=== PATIENT | male | born 1985 | race Caucasian/White ===

== ENCOUNTER 2016-10-15 15:27 | Inpatient (IN) | payer OTHER ==
[2016-10-15 16:07] VITALS: BMI 18.1
--- NOTE | 2016-10-15 19:41 | HP ---
COWS - Scale Resting Pulse: 0= NC 80 or Below Sweatin= Chills/Flushing Restless Observation: 3= Extraneous Movement Pupil Size: 0= Normal to Room Light Bone or Joint Aches: 2= Severe Diffuse Aches Runny Nose/ Eye Tearin= Runny Nose/Eyes GI Upset > 30mins: 3= Vomiting/Diarrhea Tremor Observation: 2= Slight Tremor Visible Yawning Observation: 0= None Anxiety or Irritability: 2=Irritable/Anxious Goose Flesh Skin: 3=Piloerection COWS Score: 18 Admission ROS S - [facility] Chief Complaint: withdrawal sx Allergies/Adverse Reactions: Allergies Allergy/AdvReac Type Severity Reaction Status Date / Time No Known Allergies Allergy Verified 10/15/16 19:13 History of Present Illness: 31 years old male with long history of opiate cocaine marijuana nicotine dependence, denies medical issue has schizophrenia longest sobriety 1 year is admitted to detox Exam Limitations: No Limitations - Ebola screening Have you traveled outside of the country in the last 21 days: No (N) Have you had contact with anyone from an Ebola affected area: No Have you been sick,other than usual withdrawal symptoms: No Do you have a fever: No - Review of Systems Constitutional: Chills, Loss of Appetite, Changes in sleep, Unexplained wgt Loss EENT: reports: Dental Problems (upper teeth missing) Respiratory: reports: No Symptoms reported Cardiac: reports: No Symptoms Reported GI: reports: Diarrhea, Nausea, Poor Appetite, Poor Fluid Intake, Vomiting, Abdominal cramping : reports: No Symptoms Reported Musculoskeletal: reports: Back Pain, Joint Pain, Muscle Pain, Neck Pain Integumentary: reports: Change in Color (right fore arm iv opiate) Neuro: reports: Tremors Endocrine: reports: No Symptoms Reported Hematology: reports: No Symptoms Reported Psychiatric: reports: Judgement Intact, Anxious, Depressed Other Systems: Reviewed and Negative Patient History - Patient Medical History Hx Anemia: Yes Hx Asthma: No Hx Chronic Obstructive Pulmonary Disease (COPD): No Hx Cancer: No Hx Cardiac Disorders: No Hx Congestive Heart Failure: No Hx Hypertension: No Hx Hypercholesterolemia: No Hx Pacemaker: No HX Cerebrovascular Accident: No Hx Seizures: No Hx Dementia: No Hx Diabetes: No Hx Gastrointestinal Disorders: No Hx Liver Disease: No Hx Genitourinary Disorders: No Hx Sexually Transmitted Disorders: No Hx Renal Disease (ESRD): No Hx Thyroid Disease: No Hx Human Immunodeficiency Virus (HIV): No Hx Hepatitis C: No Hx Depression: No Hx Suicide Attempt: Yes (hang self 2013) Hx Bipolar Disorder: No Hx Schizophrenia: Yes - Patient Surgical History Past Surgical History: Yes Hx Neurologic Surgery: No Hx Cataract Extraction: No Hx Cardiac Surgery: No Hx Lung Surgery: No Hx Breast Surgery: No Hx Breast Biopsy: No Hx Abdominal Surgery: No Hx Appendectomy: No Hx Cholecystectomy: No Hx Genitourinary Surgery: No Hx Section: Yes (RT WRIST 2013) Hx Orthopedic Surgery: No Other Surgical History: RT KNEE 10 years old Anesthesia Reaction: No - PPD History Previous Implant?: Yes Documented Results: Negative w/o proof Implanted On Prior [facility] Admission?: No PPD to be Administered?: Yes - Smoking Cessation Smoking history: Current every day smoker Have you smoked in the past 12 months: Yes Aproximately how many cigarettes per day: 20 Cigars Per Day: 0 Hx Chewing Tobacco Use: No Initiated information on smoking cessation: Yes 'Breaking Loose' booklet given: 10/15/16 - Substance & Tx. History Hx Alcohol Use: No Hx Substance Use: Yes Substance Use Type: Cocaine, Marijuana, Opiates Hx Substance Use Treatment: Yes - Substances Abused Heroin Route: Injection Frequency: Daily Amount used: 5 bags Age of first use: 28 Date of Last Use: 10/14/16 Cocaine Route: Smoking Frequency: Daily Amount used: 10 bags Age of first use: 17 Date of Last Use: 10/15/16 Marijuana/Hashish Route: Smoking Frequency: Daily Amount used: 2 blunts Age of first use: 12 Date of Last Use: 10/15/16 Family Disease History - Family Disease History Family Disease History: Other: Father (no contact), Mother (no contact) Admission Physical Exam BHS - Vital Signs Vital Signs: Vital Signs - 24 hr 10/15/16 16:04 Temperature 96 F L Pulse Rate 80 Respiratory 20 Rate Blood Pressure 116/58 - Physical General Appearance: Yes: Appropriately Dressed, Mild Distress, Thin, Tremorous, Irritable, Sweating, Anxious HEENTM: Yes: Hearing grossly Normal, Normal ENT Inspection, Normocephalic, Normal Voice Respiratory: Yes: Chest Non-Tender, Lungs Clear, Normal Breath Sounds, No Respiratory Distress, No Accessory Muscle Use Neck: Yes: Supple, Trachea in good position Breast: Yes: Breasts Symetrical Cardiology: Yes: Regular Rhythm, Regular Rate, S1, S2 Abdominal: Yes: Non Tender, Soft Genitourinary: Yes: Within Normal Limits Back: Yes: Normal Inspection Musculoskeletal: Yes: full range of Motion, Gait Steady, Joint swelling (feet) Extremities: Yes: Normal Range of Motion, Non-Tender, Tremors Neurological: Yes: Alert, Motor Strength 5/5, Normal Response, Depressed Affect Integumentary: Yes: Track Bee Lymphatic: Yes: Within Normal Limits - Diagnostic (1) Opioid dependence with withdrawal Current Visit: Yes Status: Acute (2) Nicotine dependence Current Visit: Yes Status: Acute Qualifiers: Nicotine product type: cigarettes Substance use status: in withdrawal Qualified Code(s): F17.213 - Nicotine dependence, cigarettes, with withdrawal (3) Weight loss Current Visit: Yes Status: Acute (4) Schizophrenia Current Visit: Yes Status: Suspected Qualifiers: Schizophrenia type: paranoid schizophrenia Qualified Code(s): F20.0 - Paranoid schizophrenia Comment: resperidal Cleared for Admission [facility] - Detox or Rehab [facility] Level of Care: Medically Managed Detox Regimen/Protocol: Methadone [facility] Breath Alcohol Content Breath Alcohol Content: 0 Urine Drug Screen - Results Drug Screen Negative: No Urine Drug Screen Results: THC-Marijuana, ISABEL-Cocaine, OPI-Opiates
[2016-10-15] MEDS ORDERED: MAG HYDROX/AL HYDROX/SIMETH 30 ML UNIT-DOSE CUP PO PRN (19:46)
[2016-10-15] MEDS ORDERED: guaiFENesin/D-METHORPHAN HB 10 ML UNIT-DOSE CUPS PO PRN (19:46)
[2016-10-15] MEDS ORDERED: MAGNESIUM HYDROX 2400MG/30ML ORAL SUSPENSION 30 ML CUP PO PRN (19:46)
[2016-10-15] MEDS ORDERED: MAGNESIUM CITRATE 300 ML BOTTLE PO PRN (19:46)
[2016-10-15] MEDS ORDERED: LOPERAMIDE HCL 2 MG CAPSULE PO PRN (19:46)
[2016-10-15] MEDS ORDERED: METHADONE HCL 10 MG TABLET (FOR DETOX USE ONLY) PO ONE ×2 (19:46→23:00)
[2016-10-15] MEDS ORDERED: NICOTINE POLACRILEX 2 MG GUM BC PRN (19:46)
[2016-10-15] MEDS ORDERED: MENTHOL/PHENOL 1 EACH UD MM PRN (19:46)
[2016-10-15] MEDS ORDERED: P-EPHED 60MG/TRIPROLIDI 2.5MG TABLET PO PRN (19:46)
[2016-10-15] MEDS ORDERED: ACETAMINOPHEN 325 MG TABLET (FP) PO PRN (19:46)
[2016-10-15] MEDS ORDERED: IBUPROFEN 400 MG TABLET (FP) PO PRN (19:46)
[2016-10-15] MEDS ORDERED: ONDANSETRON *ODT* 4 MG TABLET SL PRN (19:50)
[2016-10-15] MEDS: diazePAM 5 MG TABLET PO PRN (20:54)
[2016-10-15] MEDS: THIAMINE HCL 100 MG TABLET (FP) PO SCH (22:46)
[2016-10-15] MEDS: diphenhydrAMINE HCL 50 MG CAPSULE PO PRN (22:47)
[2016-10-15] MEDS ORDERED: BACITRACIN 0.9 GM PACKET TP ONE (23:19)
[2016-10-16] MEDS: CEPHALEXIN MONOHYDRATE 500 MG CAPSULE (UD) PO SCH ×5 (00:27→23:07)
[2016-10-16] MEDS: diazePAM 5 MG TABLET PO PRN ×4 (06:01→22:24)
[2016-10-16 09:58] LABS: MCH 32.3 pg (25.7-33.7); MEAN CELL VOLUME 97.9 fl (80-96); MEAN PLT VOLUME 7.6 fl (7.5-11.1); PLATELET COUNT 200 K/MM3 (134-434); RDW 15.1 % (11.9-15.9); WHITE BLOOD COUNT 5.8 K/mm3 (4.0-10.0)
[2016-10-16] MEDS ORDERED: METHADONE HCL 10 MG TABLET (FOR DETOX USE ONLY) PO ONE (10:00)
[2016-10-16 10:35] LABS: ALBUMIN 3.2 g/dl (3.4-5.0); ALK PHOS 70 U/L (45-117); ANION GAP 10 (8-16); BILIRUBIN,TOTAL 0.2 mg/dL (0.2-1.0); CALCIUM 8.6 mg/dL (8.5-10.1); CO2 28 mmol/L (21-32); CREATININE 0.9 mg/dL (0.7-1.3); GLUCOSE,RANDOM 75 mg/dL (74-106); SGOT/AST 29 U/L (15-37); SGPT/ALT 29 U/L (12-78)
--- NOTE | 2016-10-16 10:42 | CONSULT ---
[facility] Psychiatric Consult - Data Date of interview: 10/16/16 Admission source: [facility] Identifying data: First admission to [facility] for this 31 y/o male seeking detox treatment on for opioid,cocaine,marijuana and nicotine dependence.Mr Goldsmith is approached at bedside for psychiatric evaluation.He refuses to provide personal information." I cannot answer questions now.Please leave." Patient declines psychiatric interview. Substance Abuse History: No details offered. Medical History: No information from patient. Psychiatric History: Noted report of schizophrenia.No details. Physical/Sexual Abuse/Trauma History: No information. Additional Comment: Urine Drug Screen Results: THC-Marijuana, ISABEL-Cocaine, OPI- Opiates.Noted. Nursing staff is made aware of patient's refusal of psychiatric evaluation.No evidence of distress.Mr Gonzalez was observed earlier,by this field underwriter,moving around in his wheelchair.
[2016-10-16] MEDS: PRENATAL VITAMINS W/ FOLIC ACID TABLET (FP) PO SCH (10:58)
[2016-10-16] MEDS: NICOTINE 21 MG/24 HOURS TOPICAL PATCH TD SCH (10:58)
[2016-10-16 11:05] LABS: HIV 1 & 2 AB NEGATIVE; HIV 1 AGp24 NEGATIVE
--- NOTE | 2016-10-16 12:12 | PN ---
BHS COWS - Scale Resting Pulse: 0= CT 80 or Below Sweatin= Chills/Flushing Restless Observation: 3= Extraneous Movement Pupil Size: 2= Moderately Dilated Bone or Joint Aches: 4=Acute Joint/Muscle Pain Runny Nose/ Eye Tearin= Nasal Congestion GI Upset > 30mins: 1= Stomach Cramp Tremor Observation of Outstretched Hands: 2= Slight Tremor Visible Yawning Observation: 2= >3x During Session Anxiety or Irritability: 1=Feels Anxious/Irritable Goose Flesh Skin: 0=Smooth Skin COWS Score: 17 BHS Progress Note (SOAP) Subjective: ANXIETY,SWEATS,FEET PAIN DUE TO LEG WOUND. PT STATES WALKED TOO MUCH AND SUSTAINED MULTIPLE BLISTERS ON BOTH FEET.DRESSINGS INTACT. Objective: 10/16/16 12:11 Vital Signs Temperature 97 F L 10/16/16 11:53 Pulse Rate 72 10/16/16 11:53 Respiratory Rate 18 10/16/16 11:53 Blood Pressure 105/60 10/16/16 11:53 O2 Sat by Pulse Oximetry (%) Laboratory Last Values WBC 5.8 K/mm3 (4.0-10.0) 10/16/16 07:00 RBC 4.20 M/mm3 (4.00-5.60) 10/16/16 07:00 Hgb 13.6 GM/dL (11.7-16.9) 10/16/16 07:00 Hct 41.1 % (35.4-49) 10/16/16 07:00 MCV 97.9 fl (80-96) H 10/16/16 07:00 MCHC 33.0 g/dl (32.0-35.9) 10/16/16 07:00 RDW 15.1 % (11.9-15.9) 10/16/16 07:00 Plt Count 200 K/MM3 (134-434) 10/16/16 07:00 MPV 7.6 fl (7.5-11.1) 10/16/16 07:00 Sodium 143 mmol/L (136-145) 10/16/16 07:00 Potassium 4.1 mmol/L (3.5-5.1) 10/16/16 07:00 Chloride 105 mmol/L (98-107) 10/16/16 07:00 Carbon Dioxide 28 mmol/L (21-32) 10/16/16 07:00 Anion Gap 10 (8-16) 10/16/16 07:00 BUN 17 mg/dL (7-18) 10/16/16 07:00 Creatinine 0.9 mg/dL (0.7-1.3) 10/16/16 07:00 Creat Clearance w eGFR > 60 (>60) 10/16/16 07:00 Random Glucose 75 mg/dL (74-106) 10/16/16 07:00 Calcium 8.6 mg/dL (8.5-10.1) 10/16/16 07:00 Total Bilirubin 0.2 mg/dL (0.2-1.0) 10/16/16 07:00 AST 29 U/L (15-37) 10/16/16 07:00 ALT 29 U/L (12-78) 10/16/16 07:00 Alkaline Phosphatase 70 U/L (45-117) 10/16/16 07:00 Total Protein 6.0 g/dl (6.4-8.2) L 10/16/16 07:00 Albumin 3.2 g/dl (3.4-5.0) L 10/16/16 07:00 HIV 1&2 Antibody Screen Negative 10/16/16 07:00 HIV P24 Antigen Negative 10/16/16 07:00 Assessment: 10/16/16 12:11 WITHDRAWAL SX Plan: CONTINUE DETOX
[2016-10-16] MEDS ORDERED: BACITRACIN 0.9 GM PACKET TP ONE (19:56)
--- NOTE | 2016-10-16 19:59 | PN ---
BHS Progress Note (SOAP) Subjective: skin abrasion of both feet Objective: 10/16/16 19:57 healing improvement less painful Assessment: 10/16/16 19:58 feet skin abrasion Plan: patient is doing well with oral keflex and bacitracin dressing change continue detox
[2016-10-16] MEDS: THIAMINE HCL 100 MG TABLET (FP) PO SCH (22:24)
[2016-10-16] MEDS: diphenhydrAMINE HCL 50 MG CAPSULE PO PRN (22:26)
--- NOTE | 2016-10-16 23:35 | EKG ---
Test Reason : Blood Pressure : / mmHG Vent. Rate : 083 BPM Atrial Rate : 083 BPM P-R Int : 136 ms QRS Dur : 082 ms QT Int : 368 ms P-R-T Axes : 062 081 057 degrees QTc Int : 432 ms NORMAL SINUS RHYTHM NORMAL ECG NO PREVIOUS ECGS AVAILABLE Confirmed by KATHY BLACKWOOD MD ([id number]) on 10/16/2016 11:35:07 PM Referred By: Rafita Sapp Confirmed By:KATHY BLACKWOOD MD
[2016-10-17] MEDS: diazePAM 5 MG TABLET PO PRN ×4 (02:41→22:13)
[2016-10-17] MEDS: CEPHALEXIN MONOHYDRATE 500 MG CAPSULE (UD) PO SCH ×4 (05:54→23:15)
[2016-10-17] MEDS ORDERED: METHADONE HCL 5 MG TABLET (FOR DETOX USE ONLY) PO ONE (10:00)
[2016-10-17] MEDS: NICOTINE 21 MG/24 HOURS TOPICAL PATCH TD SCH (10:18)
[2016-10-17] MEDS: PRENATAL VITAMINS W/ FOLIC ACID TABLET (FP) PO SCH (10:18)
--- NOTE | 2016-10-17 10:58 | PN ---
BHS COWS - Scale Resting Pulse: 1= ID [id number] Sweatin= Chills/Flushing Restless Observation: 3= Extraneous Movement Pupil Size: 2= Moderately Dilated Bone or Joint Aches: 4=Acute Joint/Muscle Pain Runny Nose/ Eye Tearin= Nasal Congestion GI Upset > 30mins: 1= Stomach Cramp Tremor Observation of Outstretched Hands: 2= Slight Tremor Visible Yawning Observation: 1= 1-2x During Session Anxiety or Irritability: 2=Irritable/Anxious Goose Flesh Skin: 0=Smooth Skin COWS Score: 18 BHS Progress Note (SOAP) Subjective: ANXIETY,SWEATS,FATIGUE,FEET PAIN DECREASED AND BANDAGE DRESSING REMOVED. Objective: 10/17/16 10:55 Vital Signs Temperature 97 F L 10/17/16 09:28 Pulse Rate 82 10/17/16 09:28 Respiratory Rate 19 10/17/16 09:28 Blood Pressure 120/74 10/17/16 09:28 O2 Sat by Pulse Oximetry (%) Laboratory Last Values WBC 5.8 K/mm3 (4.0-10.0) 10/16/16 07:00 RBC 4.20 M/mm3 (4.00-5.60) 10/16/16 07:00 Hgb 13.6 GM/dL (11.7-16.9) 10/16/16 07:00 Hct 41.1 % (35.4-49) 10/16/16 07:00 MCV 97.9 fl (80-96) H 10/16/16 07:00 MCHC 33.0 g/dl (32.0-35.9) 10/16/16 07:00 RDW 15.1 % (11.9-15.9) 10/16/16 07:00 Plt Count 200 K/MM3 (134-434) 10/16/16 07:00 MPV 7.6 fl (7.5-11.1) 10/16/16 07:00 Sodium 143 mmol/L (136-145) 10/16/16 07:00 Potassium 4.1 mmol/L (3.5-5.1) 10/16/16 07:00 Chloride 105 mmol/L (98-107) 10/16/16 07:00 Carbon Dioxide 28 mmol/L (21-32) 10/16/16 07:00 Anion Gap 10 (8-16) 10/16/16 07:00 BUN 17 mg/dL (7-18) 10/16/16 07:00 Creatinine 0.9 mg/dL (0.7-1.3) 10/16/16 07:00 Creat Clearance w eGFR > 60 (>60) 10/16/16 07:00 Random Glucose 75 mg/dL (74-106) 10/16/16 07:00 Calcium 8.6 mg/dL (8.5-10.1) 10/16/16 07:00 Total Bilirubin 0.2 mg/dL (0.2-1.0) 10/16/16 07:00 AST 29 U/L (15-37) 10/16/16 07:00 ALT 29 U/L (12-78) 10/16/16 07:00 Alkaline Phosphatase 70 U/L (45-117) 10/16/16 07:00 Total Protein 6.0 g/dl (6.4-8.2) L 10/16/16 07:00 Albumin 3.2 g/dl (3.4-5.0) L 10/16/16 07:00 RPR Titer Nonreactive (NONREACTIVE) 10/16/16 07:00 Hepatitis C Antibody <0.1 s/co ratio (0.0-0.9) 10/16/16 07:00 HIV 1&2 Antibody Screen Negative 10/16/16 07:00 HIV P24 Antigen Negative 10/16/16 07:00 LABS NOTED BOTH FEET:CLEAN WITH MINIMAL SMALL HEALING BLISTERS. BACITRACIN OINTMENT OBVIOUS ON SOLES OF FEET. NO DRAINAGE. Assessment: 10/17/16 10:58 WITHDRAWAL SX Plan: CONTINUE DETOX
[2016-10-17 13:05] LABS: URINE APPEARANCE CLEAR; URINE BILIRUBIN NEGATIVE (NEGATIVE); URINE BLOOD NEGATIVE (NEGATIVE); URINE COLOR STRAW; URINE GLUCOSE (UA) NEGATIVE (NEGATIVE); URINE KETONE NEGATIVE (NEGATIVE); URINE LEUK ESTERASE NEGATIVE (NEGATIVE); URINE NITRITE NEGATIVE (NEGATIVE); URINE PROTEIN NEGATIVE (NEGATIVE); URINE UROBILINOGEN NEGATIVE E.U./dl (0.2-1.0)
[2016-10-17] MEDS: THIAMINE HCL 100 MG TABLET (FP) PO SCH (22:13)
[2016-10-18] MEDS: CEPHALEXIN MONOHYDRATE 500 MG CAPSULE (UD) PO SCH ×4 (05:34→23:11)
[2016-10-18] MEDS: diazePAM 5 MG TABLET PO PRN ×3 (05:34→17:28)
[2016-10-18] MEDS ORDERED: METHADONE HCL 5 MG TABLET (FOR DETOX USE ONLY) PO ONE (10:00)
[2016-10-18] MEDS: PRENATAL VITAMINS W/ FOLIC ACID TABLET (FP) PO SCH (10:26)
[2016-10-18] MEDS: NICOTINE 21 MG/24 HOURS TOPICAL PATCH TD SCH (10:27)
--- NOTE | 2016-10-18 10:27 | PN ---
BHS Progress Note (SOAP) Subjective: OOB AMBULATING ON UNIT. LEG BLISTERS RESOLVING, SLIGHT ANXIETY,SWEATS/CHILLS. Objective: 10/18/16 10:27 Vital Signs Temperature 97.8 F 10/18/16 09:27 Pulse Rate 88 10/18/16 09:27 Respiratory Rate 18 10/18/16 09:27 Blood Pressure 113/66 10/18/16 09:27 O2 Sat by Pulse Oximetry (%) Assessment: 10/18/16 10:27 WITHDRAWAL SX Plan: CONTINUE DETOX
[2016-10-18] MEDS: THIAMINE HCL 100 MG TABLET (FP) PO SCH (22:42)
[2016-10-18] MEDS: diphenhydrAMINE HCL 50 MG CAPSULE PO PRN (22:43)
[2016-10-19] MEDS: CEPHALEXIN MONOHYDRATE 500 MG CAPSULE (UD) PO SCH ×2 (05:50→12:42)
--- NOTE | 2016-10-19 08:45 | PN ---
BHS Progress Note (SOAP) Subjective: sweating,interrupted sleep,restless Objective: 10/19/16 08:43 Vital Signs - 8 hr 10/19/16 10/19/16 03:41 06:25 Temperature 97.1 F L Pulse Rate 80 Respiratory 18 16 Rate Blood Pressure 108/67 Laboratory Tests 10/16/16 10/16/16 10/16/16 07:00 07:00 07:00 WBC 5.8 RBC 4.20 Hgb 13.6 Hct 41.1 MCV 97.9 H MCHC 33.0 RDW 15.1 Plt Count 200 MPV 7.6 Sodium 143 Potassium 4.1 Chloride 105 Carbon Dioxide 28 Anion Gap 10 BUN 17 Creatinine 0.9 Creat Clearance w eGFR > 60 Random Glucose 75 Calcium 8.6 Total Bilirubin 0.2 AST 29 ALT 29 Alkaline Phosphatase 70 Total Protein 6.0 L Albumin 3.2 L Urine Color Urine Appearance Urine pH Ur Specific [place] Urine Protein Urine Glucose (UA) Urine Ketones Urine Blood Urine Nitrite Urine Bilirubin Urine Urobilinogen Ur Leukocyte Esterase RPR Titer Hepatitis C Antibody HIV 1&2 Antibody Screen Negative HIV P24 Antigen Negative 10/16/16 10/16/16 10/17/16 07:00 07:00 09:00 WBC RBC Hgb Hct MCV MCHC RDW Plt Count MPV Sodium Potassium Chloride Carbon Dioxide Anion Gap BUN Creatinine Creat Clearance w eGFR Random Glucose Calcium Total Bilirubin AST ALT Alkaline Phosphatase Total Protein Albumin Urine Color Straw Urine Appearance Clear Urine pH 6.0 Ur Specific [place] 1.011 Urine Protein Negative Urine Glucose (UA) Negative Urine Ketones Negative Urine Blood Negative Urine Nitrite Negative Urine Bilirubin Negative Urine Urobilinogen Negative Ur Leukocyte Esterase Negative RPR Titer Nonreactive Hepatitis C Antibody <0.1 HIV 1&2 Antibody Screen HIV P24 Antigen labs noted Assessment: 10/19/16 08:44 withdrawal sx. Plan: continue detox
[2016-10-19] MEDS ORDERED: METHADONE HCL 10 MG TABLET (FOR DETOX USE ONLY) PO ONE (10:00)
[2016-10-19 10:14] VITALS: BP 112/65; PULSE 102; TEMP 98.1
[2016-10-19] MEDS: NICOTINE 21 MG/24 HOURS TOPICAL PATCH TD SCH (10:27)
[2016-10-19] MEDS: PRENATAL VITAMINS W/ FOLIC ACID TABLET (FP) PO SCH (10:27)
--- NOTE | 2016-10-19 13:28 | DS ---
[facility] Detox Discharge Summary Admission Date: 10/15/16 Discharge Date: 10/19/16 - History Present History: Opioid Dependence Pertinent Past History: WEIGHT LOSS - Physical Exam Results Vital Signs: Vital Signs Temperature 98.1 F 10/19/16 10:13 Pulse Rate 102 H 10/19/16 10:13 Respiratory Rate 18 10/19/16 10:13 Blood Pressure 112/65 10/19/16 10:13 O2 Sat by Pulse Oximetry (%) Pertinent Admission Physical Exam Findings: WITHDRAWAL SX Laboratory Tests 10/16/16 10/16/16 10/16/16 07:00 07:00 07:00 WBC 5.8 RBC 4.20 Hgb 13.6 Hct 41.1 MCV 97.9 H MCHC 33.0 RDW 15.1 Plt Count 200 MPV 7.6 Sodium 143 Potassium 4.1 Chloride 105 Carbon Dioxide 28 Anion Gap 10 BUN 17 Creatinine 0.9 Creat Clearance w eGFR > 60 Random Glucose 75 Calcium 8.6 Total Bilirubin 0.2 AST 29 ALT 29 Alkaline Phosphatase 70 Total Protein 6.0 L Albumin 3.2 L Urine Color Urine Appearance Urine pH Ur Specific [place] Urine Protein Urine Glucose (UA) Urine Ketones Urine Blood Urine Nitrite Urine Bilirubin Urine Urobilinogen Ur Leukocyte Esterase RPR Titer Hepatitis C Antibody HIV 1&2 Antibody Screen Negative HIV P24 Antigen Negative 10/16/16 10/16/16 10/17/16 07:00 07:00 09:00 WBC RBC Hgb Hct MCV MCHC RDW Plt Count MPV Sodium Potassium Chloride Carbon Dioxide Anion Gap BUN Creatinine Creat Clearance w eGFR Random Glucose Calcium Total Bilirubin AST ALT Alkaline Phosphatase Total Protein Albumin Urine Color Straw Urine Appearance Clear Urine pH 6.0 Ur Specific [place] 1.011 Urine Protein Negative Urine Glucose (UA) Negative Urine Ketones Negative Urine Blood Negative Urine Nitrite Negative Urine Bilirubin Negative Urine Urobilinogen Negative Ur Leukocyte Esterase Negative RPR Titer Nonreactive Hepatitis C Antibody <0.1 HIV 1&2 Antibody Screen HIV P24 Antigen LABS NOTED - Treatment Hospital Course: Detox Protocol Followed, Detoxed Safely, Discharged Condition Good - Medication Discharge Medications: Ambulatory Orders Fluoxetine HCl [Prozac -] 20 mg PO DAILY 10/15/16 Risperidone [Risperdal] 2 mg PO DAILY 10/15/16 - Diagnosis (1) Nicotine dependence Current Visit: Yes Status: Acute Qualifiers: Nicotine product type: cigarettes Substance use status: in withdrawal Qualified Code(s): F17.213 - Nicotine dependence, cigarettes, with withdrawal (2) Opioid dependence with withdrawal Current Visit: Yes Status: Acute (3) Weight loss Current Visit: Yes Status: Acute (4) Schizophrenia Current Visit: Yes Status: Suspected Qualifiers: Schizophrenia type: paranoid schizophrenia Qualified Code(s): F20.0 - Paranoid schizophrenia - AMA Did Patient Leave Against Medical Advice: No
[2016-10-20] MEDS ORDERED: METHADONE HCL 5 MG TABLET (FOR DETOX USE ONLY) PO ONE (06:00)
== END 2016-10-19 13:51 | disposition home or self-care (01) | DRG 773 ==
LOC: YASAS 15:27 → Y3N 20:05
PROVIDERS: ADMIT Internal Medicine; ATTEND Internal Medicine
PROC: HZ2ZZZZ Detoxification Services for Substance Abuse Treatment (ICD-10-PCS; principal; 2016-10-19)
DX: F11.23 Opioid dependence with withdrawal (principal); F10.230 Alcohol dependence with withdrawal, uncomplicated; F14.20 Cocaine dependence, uncomplicated; F20.0 Paranoid schizophrenia; R63.4 Abnormal weight loss; Z68.1 Body mass index [BMI] 19.9 or less, adult; Z59.0 Homelessness
CPT/HCPCS: 36415; 80053; 81003; 85027; 86593; 86803; 87389; 93005; 93010